=== PATIENT | male | born 1955 | race Caucasian/White ===

== ENCOUNTER 2019-07-01 14:50 | Emergency (ER) | payer OTHER ==
[~2019-07-01] VITALS: Ht 172.7 cm; Wt 83.9 kg
[2019-07-01] MEDS ORDERED: IRBESARTAN PO (15:28)
[2019-07-01] MEDS ORDERED: AMLODIPINE BESYL5 MG PO (15:28)
== END 2019-07-01 18:17 | disposition home or self-care (01) ==
LOC: ER 14:50
DX: B34.9 Viral infection, unspecified (principal)